=== PATIENT | male | born 2000 | race African-American/Black ===

== ENCOUNTER 2019-01-31 15:07 | Emergency (ER) | payer OTHER ==
[~2019-01-31] VITALS: Ht 162.6 cm; Wt 81.5 kg
[2019-01-31 16:00] VITALS: BP 123/89
== END 2019-01-31 16:00 | disposition home or self-care (01) ==
LOC: ER 15:07
DX: T67.5XXA Heat exhaustion, unspecified, initial encounter (principal); X30.XXXA Exposure to excessive natural heat, initial encounter; Y93.89 Activity, other specified; Y92.89 Other specified places as the place of occurrence of the external cause; Y99.0 Civilian activity done for income or pay

== ENCOUNTER 2020-08-09 06:41 | Emergency (ER) | payer OTHER ==
[~2020-08-09] VITALS: Ht 170.2 cm; Wt 82.6 kg
--- NOTE | 2020-08-09 07:44 | EKG ---
[address] [address] ELECTROCARDIOGRAM REPORT Name: NICOLASA CARROLL Room #: [facility]#: [id number] Admission: Attend Phys: Discharge: Date of : 89 Report #: [id number] [facility] ED Test Date: 2020-08-09 Test Time: 07:39:44 Pat Name: NICOLASA CARROLL Department: Room: Gender: M [employer]: : 2000 Requested By: Swetha Olsen Order Number: [id number] MD: Andi Malave Measurements Intervals [place] Rate: 92 P: 42 NV: 193 QRS: 30 QRSD: 82 T: 22 QT: 340 QTc: 421 Interpretive Statements Sinus rhythm ST elev, probable normal early repol pattern No previous ECG available for comparison Electronically Signed On 08-09-2020 7:44:41 [employer] by Andi Malave [email or web address] <ELECTRONICALLY SIGNED> By: Andi Malave MD, [facility] 08/09/20 0744 0739 0739 Andi Malave MD, FACC /EPI
[2020-08-09 08:02] LABS: ABSOLUTE NEUTROPHILS 2.5 thou/uL (1.4-8.2); BASOPHILS 1.3 % (0.0-2.0); EOSINOPHILS 1.3 % (0.0-3.0); HEMOGLOBIN 14.4 gm/dL (14.0-18.0); LYMPHOCYTES 39.8 % (24.0-44.0); MCHC 34.3 g/dL (28.0-37.0); MCV 87.3 fL (80.0-100.0); MONOCYTES 8.6 % (1.0-8.0); PLATELET COUNT 247 thou/uL (150-400); RBC 4.81 mil/uL (4.50-6.00); RDW 12.3 % (10.5-14.5); WBC 5.1 thou/uL (4.0-11.0)
[2020-08-09 08:11] LABS: ANION GAP 8 mmol/L (7-16); BUN 15 mg/dL (7-18); CALCIUM 9.2 mg/dL (8.5-10.1); CHLORIDE 102 mmol/L (98-107); CO2 31 mmol/L (21-32); GLUCOSE 112 mg/dL (74-106); POTASSIUM 3.7 mmol/L (3.5-5.1); SODIUM 141 mmol/L (136-145)
[2020-08-09 08:19] LABS: TROPONIN-I <0.06 ng/mL (<0.06)
[2020-08-09 08:53] VITALS: BP 121/72
== END 2020-08-09 08:53 | disposition home or self-care (01) ==
LOC: ER 06:41
PROVIDERS: Emergency Medicine
DX: U07.1 COVID-19 (principal); R00.2 Palpitations; R06.00 Dyspnea, unspecified; G40.909 Epilepsy, unspecified, not intractable, without status epilepticus